=== PATIENT | female | born 1965 ===

== ENCOUNTER 2017-08-03 19:10 | Emergency (ER) | payer MEDICAID ==
[2017-08-03] MEDS ORDERED: Sodium Chloride 0.9% 1,000 ML IV STA (20:10)
[2017-08-03 20:25] LABS: BASO # 0.1 K/uL (0.0-0.2); BASO % 0.7 % (0.0-2.0); EOS # 0.3 K/uL (0.0-0.7); EOS % 2.9 % (0.0-4.0); HEMOGLOBIN 12.1 g/dL (12.0-16.0); LYMPH # 2.1 K/uL (1.0-4.3); LYMPH % 20.9 % (20.0-40.0); MEAN CELL VOLUME 91.1 fl (81.0-99.0); MEAN CORPUSCULAR HEMOGLOBIN 31.2 pg (27.0-31.0); MEAN CORPUSCULAR HGB CONC 34.2 g/dL (33.0-37.0); MEAN PLATELET VOLUME 8.2 fl (7.2-11.7); MONO # 0.7 K/uL (0.0-0.8); MONO % 6.8 % (0.0-10.0); NEUT # 6.8 K/uL (1.8-7.0); NEUT % 68.7 % (50.0-75.0); NRBC % 0.1 % (0.0-0.0); RBC 3.87 Mil/uL (3.80-5.20); RED CELL DISTRIBUTION WIDTH 12.7 % (11.5-14.5); WHITE BLOOD COUNT 9.9 K/uL (4.8-10.8)
--- NOTE | 2017-08-03 20:29 | ED PDOC ---
HPI: Headache Time Seen by Provider: 08/03/17 19:20 Chief Complaint (Nursing): Headache Chief Complaint (Provider): Headache History Per: Patient History/Exam Limitations: no limitations Onset/Duration Of Symptoms: Hrs (x 4) Current Symptoms Are (Timing): Still Present Associated Symptoms: Nausea Additional Complaint(s): 52 year old female with a past medical history of migraines presents to the ER complaining of a headache since 4PM. She reports around 5PM she began feeling nauseous and symptoms worsened. No vomiting, diarrhea, chest pain, or abdominal pain. Patient reports she takes propranolol nightly to manage her migraines, last taken last night. She took Tylenol 1 hour ago with mild relief. Pain is still rated as 8/10. PMD: Dr. Gulshan Giraldo Past Medical History Reviewed: Historical Data, Nursing Documentation, Vital Signs Vital Signs: Last Vital Signs Temp 97.3 F L 08/03/17 19:11 Pulse 81 08/03/17 19:11 Resp 16 08/03/17 19:11 BP 139/81 08/03/17 19:11 Pulse Ox 100 08/03/17 19:11 - Medical History PMH: Migraine - Surgical History Surgical History: Cholecystectomy Other surgeries: Hysterectomy - Family History Family History: States: Unknown Family Hx - Social History Current smoker - smoking cessation education provided: No Alcohol: None - Home Medications Home Medications: Ambulatory Orders Medication Instructions Recorded Meclizine [Antivert] 25 mg PO BID #30 tab 06/13/14 Meclizine [Meclizine*] 25 mg PO Q6 PRN #30 tab 07/31/15 Ciprofloxacin HCl [Cipro] 500 mg PO BID #20 tab 10/15/15 traMADol [Ultram] 50 mg PO Q8 #10 tab 10/15/15 - Allergies Allergies/Adverse Reactions: Allergies Allergy/AdvReac Type Severity Reaction Status Date / Time acetaminophen [From Percocet] Allergy RASH Verified 10/15/15 16:02 oxycodone HCl [From Percocet] Allergy RASH Verified 10/15/15 16:02 Review of Systems ROS Statement: Except As Marked, All Systems Reviewed And Found Negative Cardiovascular: Negative for: Chest Pain Gastrointestinal: Positive for: Nausea. Negative for: Vomiting, Abdominal Pain , Diarrhea Neurological: Positive for: Headache Physical Exam - Reviewed Nursing Documentation Reviewed: Yes Vital Signs Reviewed: Yes - Physical Exam Appears: Positive for: Non-toxic, No Acute Distress Head Exam: Positive for: ATRAUMATIC, NORMAL INSPECTION, NORMOCEPHALIC Skin: Positive for: Normal Color, Warm, Dry Eye Exam: Positive for: EOMI, Normal appearance, PERRL Neck: Positive for: Normal, Painless ROM, Supple Cardiovascular/Chest: Positive for: Regular Rate, Rhythm. Negative for: Murmur Respiratory: Positive for: Normal Breath Sounds. Negative for: Accessory Muscle Use, Respiratory Distress Gastrointestinal/Abdominal: Positive for: Normal Exam, Soft. Negative for: Tenderness Extremity: Positive for: Normal ROM, Other (strength is 5/5 throughout). Negative for: Pedal Edema, Deformity Neurologic/Psych: Positive for: Alert, yard specialist II-XII (normal), Oriented (x 3), Cerebellar Tests (normal). Negative for: Motor/Sensory Deficits, Aphasia, Facial Droop - Laboratory Results Result Diagrams: 08/03/17 20:18 08/03/17 20:18 - ECG O2 Sat by Pulse Oximetry: 100 (RA) Pulse Ox Interpretation: Normal Medical Decision Making Medical Decision Making: Time: 20:10 Initial Plan: * CMP * CBC * IV fluids * Reglan and Pepcid * Reevaluation Labs reviewed, and are grossly normal. Time: 21:50 Patient is feeling better, and is medically stable for discharge. Provided with referral for neurologist on-call. Patient is to follow up with PMD or neurologist for further evaluation. Scribe Attestation: Documented by Marta Romero, acting as a scribe for Pipo Shay MD Provider Scribe Attestation: All medical record entries made by the Scribe were at my direction and personally dictated by me. I have reviewed the chart and agree that the record accurately reflects my personal performance of the history, physical exam, medical decision making, and the department course for this patient. I have also personally directed, reviewed, and agree with the discharge instructions and disposition. Disposition - Clinical Impression Clinical Impression: Migraine - Patient ED Disposition Is Patient to be Admitted: No Counseled Patient/Family Regarding: Studies Performed, Diagnosis, Need For Followup - Disposition Referrals: [facility] [Outside] Leland Naranjo MD [Medical Doctor] - Disposition: Routine/Home Disposition Time: 21:15 Condition: IMPROVED Additional Instructions: follow up with your primary doctor /follow up with neurologist as instructed take motrin for pain return to the ED with any worsening or concerning symptoms Instructions: Migraine Headache (ED) Forms: [facility] (Greek) - POA Present On Arrival: None
[2017-08-03 20:38] LABS: ALB/GLOB RATIO 1.3 (1.0-2.1); ALBUMIN 4.5 g/dL (3.5-5.0); ALT/SGPT 30 U/L (9-52); AST/SGOT 18 U/L (14-36); BLOOD UREA NITROGEN 15 mg/dl (7-17); CALCIUM 9.2 mg/dL (8.4-10.2); GFR AFRICAN-AMERICAN > 60; GFR NON-AFRICAN AMERICAN > 60
[2017-08-03 21:54] VITALS: BP 110/78; PULSE 78; RESP 18; TEMP 98.2
[2017-08-03 22:57] VITALS: O2SAT 100
== END 2017-08-03 21:53 | disposition home or self-care (01) ==
LOC: H.ER 19:10
DX: G43.909 Migraine, unspecified, not intractable, without status migrainosus (principal)
CPT/HCPCS: 80053; 85025; 96374; 96375; 99283; J2765; J7040

== ENCOUNTER 2018-04-30 05:55 | Day surgery (SDC) | payer MEDICAID ==
[2018-04-16 11:21] VITALS: BMI 25.7
[2018-04-30] MEDS ORDERED: Propofol 10 mg/ml Inj (20 ML) ONE (07:18)
[2018-04-30] MEDS ORDERED: Phenylephrine 10 mg/ml Inj ONE (07:19)
[2018-04-30] MEDS ORDERED: Rocuronium 10 mg/ml (5 ml) ONE (07:19)
[2018-04-30] MEDS ORDERED: Succinylcholine 200 mg/10 ml Inj IV ONE (07:19)
[2018-04-30] MEDS ORDERED: Midazolam 2 MG/2 ML VIAL ONE (07:19)
[2018-04-30] MEDS ORDERED: ePHEDrine 50 mg/ml Inj ONE (07:19)
[2018-04-30] MEDS ORDERED: Sodium Chloride 0.9% 10 ML IV ONE (07:25)
[2018-04-30] MEDS ORDERED: Lactated Ringer's 1,000 ML IV ONE (08:15)
--- NOTE | 2018-04-30 08:30 | CP.SDSHP ---
<Walt Bhatt - Last Filed: 04/30/18 08:27> Same Day Surgery H & P - History Proposed Procedure: excision of the left upper extremity mass Pre-Op Diagnosis: Mass of the left upper extremity - Allergies Allergies: Allergies acetaminophen [From Percocet] Allergy (Verified 10/15/15 16:02) RASH oxycodone HCl [From Percocet] Allergy (Verified 10/15/15 16:02) RASH - Physical Exam Vital Signs: Vital Signs 04/30/18 04/30/18 06:29 06:32 Temperature 97.7 F Pulse Rate 79 79 Respiratory 20 Rate Blood Pressure 115/71 O2 Sat by Pulse 98 Oximetry Mental Status: Alert & Oriented x3 Neuro: WNL Heart: WNL Lungs: WNL GI: WNL - {Optional Preform as Required} Abdomen: WNL Integument: Other (5x4 cm mobile mass of the left upper extremity in the area of the anticubital fossa) Ortho: WNL ENT: WNL - Impression Impression: Mass of the left upper extremity Pt. Evaluated Today:Candidate for Anesthesia & Procedure: Yes - Date & Time Date: 04/30/18 Time: 08:00 Short Stay Discharge - Short Stay Discharge Admitting Diagnosis/Reason for Visit: D17.22 Disposition: HOME/ ROUTINE Referrals: Dereje Powell PA [Primary Care Provider] - Instructions: Skin Lesion Removal (DC) Additional Instructions (Diet, Activity): Regular Diet No restrictions for left arm movement Ok to shower tomorrow, pat arm dry. Skin glue will fall off on its own with time. Take ultram as needed for pain. Rx in chart. Call for fevers, pus draining from wound, or pain uncontrolled by medications. Local anesthesia was used but will wear off in 6-12 hours. <Bernardo Ruano - Last Filed: 04/30/18 09:18> Same Day Surgery H & P - Allergies Allergies: Allergies acetaminophen [From Percocet] Allergy (Verified 10/15/15 16:02) RASH oxycodone HCl [From Percocet] Allergy (Verified 10/15/15 16:02) RASH - Physical Exam Vital Signs: Vital Signs 04/30/18 04/30/18 06:29 06:32 Temperature 97.7 F Pulse Rate 79 79 Respiratory 20 Rate Blood Pressure 115/71 O2 Sat by Pulse 98 Oximetry Short Stay Discharge - Short Stay Discharge Follow-up: Follow up with Dr. Bhatt in 1-2 weeks
[2018-04-30] MEDS ORDERED: Dexamethasone 4 mg/1 ml ONE (08:34)
[2018-04-30] MEDS ORDERED: Lidocaine 2% MPF (5 ml) Inj ONE (08:51)
[2018-04-30] MEDS ORDERED: Lidocaine 2% Inj (20ml) IJ ONE (08:53)
--- NOTE | 2018-04-30 09:14 | PCM.SURG1 ---
Surgeon's Initial Post Op Note - Surgeon's Notes Surgeon: Miller Quenching Car Operator: Evonne Type of Anesthesia: General Endo Anesthesia Administered By: Andria Pre-Operative Diagnosis: Left upper extremity mass Operative Findings: fatty appearing left upper extremity mass Post-Operative Diagnosis: same Operation Performed: Excision of the left upper extremity mass Specimen/Specimens Removed: left upper extremity mass Estimated Blood Loss: EBL {In ML}: 1 Blood Products Given: N/A Drains Used: No Drains Post-Op Condition: Good Date of Surgery/Procedure: 04/30/18 Time of Surgery/Procedure: 08:10
[2018-04-30 10:53] VITALS: RESP 18
[2018-04-30 12:48] VITALS: BP 118/65; PULSE 82; TEMP 97.9; O2SAT 97
--- NOTE | 2018-05-03 09:21 | OP ---
PROCEDURE DATE: 04/30/18 PREOPERATIVE DIAGNOSIS: Left upper extremity mass. POSTOPERATIVE DIAGNOSIS: Left upper extremity mass. PROCEDURE: Excision of the left upper extremity mass. SURGEON: Walt Bhatt MD WELL REACTIVATOR OPERATOR: Bernardo Ruano DO. TYPE OF ANESTHESIA: General endotracheal intubation. ANESTHESIOLOGIST: Dr. Marks. IV FLUIDS: Crystalloids. ESTIMATED BLOOD LOSS: 1 mL. INTRAOPERATIVE FINDINGS: Fatty appearing mass of the left upper extremity. SPECIMEN: Mass of the left upper extremity. BRIEF HISTORY: Ms. Yassine Paulino is very pleasant 52-year-old female, who presented to my office complaining of the mass to the left upper extremity in the area of the antecubital fossa and the patient wished for the mass to be excised surgically. All the risks and benefits of the procedure were explained to the patient and with the patient having a full understanding of all the risks and benefits involved, informed consent was obtained and the patient was taken to the operating room for the above stated procedure. DESCRIPTION OF PROCEDURE: The patient was brought into the operating room and placed supine on the operating table. Bilateral Flowtron boots were applied to the patient's lower extremities. Subsequent to that, the patient's left upper extremity was placed on table and was abducted. At this point in time, after induction of anesthesia and successful endotracheal intubation by the anesthesia team, the patient's left upper extremity was prepped with ChloraPrep and draped in a standard surgical fashion. Prior to beginning of the procedure, the patient received prophylactic Ancef antibiotic. Time-out was called in the room and everyone in the room were in agreement. Using a #15-blade scalpel knife, approximately 4-cm incision was made around and the top of the palpable mass in the left upper extremity in the antecubital fossa. The incision was made in a longitudinal fashion and subsequent to that dissection was carried down with electrical cautery until the fatty appearing mass was visualized. The mass was exteriorized into the wound and subsequent to that transected with electrical cautery and [place] to [place] [facility]. At this point in time, hemostasis was achieved with electrical cautery and subsequent to that, 3 interrupted 3-0 Vicryl sutures were placed in the deep dermal layer and subsequent to that, skin was closed with 4-0 Monocryl suture in a running subcuticular fashion. At the end of the procedure, incision was infiltrated with 2% lidocaine anaesthetic. The patient's left upper extremity was washed and dried and Dermabond was applied to the site of the incisions. The patient was successfully extubated by the anesthesia team, transferred to the stretcher, and taken to the recovery room in a stable condition. At the end of the procedure, all instrument counts, needles and sponges were correct. Walt Bhatt MD
== END 2018-04-30 12:50 | disposition home or self-care (01) ==
LOC: H.OPSURG 05:55
PROVIDERS: ATTEND Surgery
DX: D17.22 Benign lipomatous neoplasm of skin and subcutaneous tissue of left arm (principal); M19.90 Unspecified osteoarthritis, unspecified site
CPT/HCPCS: 24075; 88304; J0330; J0690; J1100; J2001; J2250; J2370; J2405; J2704; J3010; J7030; J7120